=== PATIENT | female | born 1945 | race Native Hawaiian/Other Pacific Islander ===

== ENCOUNTER 2018-01-19 10:46 | Emergency (ER) | payer MEDICARE, OTHER ==
[2018-01-19 11:08] VITALS: RESP 18; O2SAT 97
--- NOTE | 2018-01-19 11:58 | ED PDOC ---
Lower Extremity Pain/Injury Time Seen by Provider: 01/19/18 10:57 Chief Complaint (Nursing): Lower Extremity Problem/Injury Chief Complaint (Provider): Lower Extremity Problem/Injury History Per: Patient History/Exam Limitations: no limitations Additional Complaint(s): 72 year old female presents to the ED via EMS with daughter complaining of left knee pain. Daughter reports patient had a zeb placed in the femur in 2013 and patient ambulates minimally. Today, patient has been having left knee pain. She had gone to bedside and was unable to stand up secondary to pain. Pain is worse when she lies flat. Denies trauma, weakness, or numbness. PMD: Shirin Fernandez Past Medical History Reviewed: Historical Data, Nursing Documentation, Vital Signs Vital Signs: Last Vital Signs Temp 97.9 F 01/19/18 11:06 Pulse 88 01/19/18 11:06 Resp 18 01/19/18 11:06 BP 155/87 H 01/19/18 11:06 Pulse Ox 97 01/19/18 11:06 - Medical History PMH: Diabetes, HTN - Surgical History Other surgeries: Left hip ORIF - Family History Family History: States: Unknown Family Hx - Allergies Allergies/Adverse Reactions: Allergies Allergy/AdvReac Type Severity Reaction Status Date / Time No Known Allergies Allergy Verified 01/19/18 11:06 Review of Systems ROS Statement: Except As Marked, All Systems Reviewed And Found Negative Musculoskeletal: Positive for: Other (Left knee pain) Neurological: Negative for: Weakness, Numbness Physical Exam - Reviewed Nursing Documentation Reviewed: Yes Vital Signs Reviewed: Yes - Physical Exam Appears: Positive for: Non-toxic, No Acute Distress Head Exam: Positive for: ATRAUMATIC, NORMOCEPHALIC Skin: Positive for: Normal Color, Warm, Dry Eye Exam: Positive for: Normal appearance Neck: Positive for: Normal, Painless ROM Cardiovascular/Chest: Positive for: Regular Rate, Rhythm Respiratory: Positive for: Normal Breath Sounds. Negative for: Wheezing, Respiratory Distress Extremity: Positive for: Normal ROM (decreased ROM of left knee secondary to pain. ), Tenderness (left knee tenderness to the anterior superior knee; minimal tenderness to left hip). Negative for: Deformity (of left knee), Other (erythema of left knee) - ECG O2 Sat by Pulse Oximetry: 97 (RA) Pulse Ox Interpretation: Normal Medical Decision Making Medical Decision Making: Initial Impression: Acute on chronic knee pain Initial Plan: --Knee X-ray --Tylenol 650mg PO --Left femur X-ray --Hip X-ray --Left knee X-ray ------- Scribe Attestation: Documented by Roderick Lucero acting as a scribe for Rena Corona MD. Provider Scribe Attestation: All medical record entries made by the Scribe were at my direction and personally dictated by me. I have reviewed the chart and agree that the record accurately reflects my personal performance of the history, physical exam, medical decision making, and the department course for this patient. I have also personally directed, reviewed, and agree with the discharge instructions and disposition. Disposition - Clinical Impression Clinical Impression: Knee pain - Disposition Disposition: Routine/Home Disposition Time: 14:40 Condition: IMPROVED Additional Instructions: FOLLOW-UP WITH [facility] WITHIN 2 DAYS FOR REEVALUATION. Instructions: Chronic Knee Pain, Joint Pain Forms: [facility] ([place])
--- NOTE | 2018-01-19 14:14 | RAD ---
Date of service: 01/19/2018 PROCEDURE: Left Knee Radiographs. HISTORY: Pain. COMPARISON: Left knee radiographs 09/04/2013. FINDINGS: BONES: Diffuse osteopenia suggests osteoporosis. No acute fracture or dislocation left knee. Intramedullary nail distal segment with interlocking screw incidentally captured at the distal left femur as imaged. Vascular calcifications are identified in soft tissues. JOINTS: No subluxation or dislocation. Degenerative joint space narrowing and cortical sclerosis are seen all 3 compartments compatible with degenerative joint disease, not dramatically changed compared to prior radiograph 09/14/2013. JOINT EFFUSION: None. OTHER FINDINGS: None. IMPRESSION: No acute fracture dislocation identified. Tricompartment osteoarthritis. Incidental note is made of interval intramedullary nail and interlocking screw at the distal left femur as visualized.
--- NOTE | 2018-01-19 14:15 | RAD ---
Date of service: 01/19/2018 PROCEDURE: Left Femur Radiographs. HISTORY: Pain COMPARISON: None. TECHNIQUE: AP and Lateral Radiographs of the left femur. FINDINGS: FEMUR: Diffuse osteopenia suggests osteoporosis. A lengthy intramedullary nail is identified throughout the left femur with proximal distal interlocking components. No acute fracture or dislocation. SOFT TISSUES: Vascular calcifications are noted medial thigh soft tissues. OTHER FINDINGS: None. IMPRESSION: No acute fracture identified. Prior ORIF with intramedullary nail in place throughout the left femur. Diffuse osteopenia suggests osteoporosis.
--- NOTE | 2018-01-19 14:16 | RAD ---
PROCEDURE: Left Hip X-ray Radiographs. HISTORY: L hip pain COMPARISON: None. FINDINGS: BONES: Diffuse osteopenia suggests osteoporosis. No acute fracture or dislocation of the left hip joint is identified. Intramedullary nail is seen at the visualized proximal left femur including interlocking component through the left femoral neck. JOINTS: Degenerative changes are identified symmetrically at the bilateral sacroiliac and hip joints and appear to be [id number] severity. SOFT TISSUES: Vascular calcification identified in the proximal medial left thigh soft tissues. OTHER FINDINGS: None. IMPRESSION: Diffuse osteopenia suggests osteoporosis. No acute fracture or dislocation left hip joint.
[2018-01-19 14:55] VITALS: BP 164/98; PULSE 87; TEMP 98.4
== END 2018-01-19 14:57 | disposition home or self-care (01) ==
LOC: H.ER 10:46
DX: M25.562 Pain in left knee (principal); E11.9 Type 2 diabetes mellitus without complications; G89.29 Other chronic pain; I10 Essential (primary) hypertension